=== PATIENT | female | born 1945 | race African-American/Black ===

== ENCOUNTER 2020-02-13 20:44 | Inpatient (IN) | payer OTHER ==
[2020-02-13] MEDS ORDERED: NA CHLORIDE 0.9% 1,000 ML ONE (22:23)
[2020-02-13] MEDS ORDERED: ONDANSETRON 4 MG/2 ML VIAL ONE (22:23)
[2020-02-13] MEDS ORDERED: MORPHINE 2 MG/ML SYR ONE (22:23)
[2020-02-13 22:36] LABS: Absolute Lymphocytes (CBC) 0.9 K/uL (0.7-4.9); Basophils % 0.5 % (0-1.3); Hematocrit 48.1 % (36.0-45.0); Lymphocytes % 5.5 % (15.3-44.8); RBC Red Blood Cell Count 4.92 M/uL (3.86-4.86)
[2020-02-13 22:52] LABS: Albumin 4.2 g/dL (3.4-5.0); Bilirubin Direct 0.1 mg/dL (0-0.2); Bilirubin Total 0.7 mg/dL (0.2-1.0); Potassium 3.6 mmol/L (3.5-5.1); Protein, Total 8.4 g/dL (6.4-8.2)
[2020-02-13 23:20] LABS: Blood Morphology Comment NOT SEEN (NOT SEEN); Platelet Estimate ADEQ
--- NOTE | 2020-02-14 00:13 | ER ---
Nurse's Notes [facility] Name: Moriah Fernández Age: 74 yrs Sex: Female : 1945 Arrival Date: 02/13/2020 Time: 20:47 Bed 7 Private MD: Deyvi Gamez Diagnosis: Small Bowel Obstruction Presentation: 02/12 21:11 Chief complaint: Patient states: I think I might have a bowel obstruction. I have been ca1 vomiting since Tuesday night and abdominal pain. I had a lot of gas Tuesday night. Denies diarrhea. Last good BM Tuesday. Had a small BM today. No HX of bowel obstruction. Every time I eat I throw it up. Denies fever. Coronavirus screen: nausea, vomiting. Client presents with at least one sign or symptom that may indicate coronavirus-19. Standard/surgical mask placed on the client. Provider contacted for isolation considerations. Ebola Screen: Patient negative for fever greater than or equal to 101.5 degrees Fahrenheit, and additional compatible Ebola Virus Disease symptoms Patient denies exposure to infectious person. Patient denies travel to an Ebola-affected area in the 21 days before illness onset. No symptoms or risks identified at this time. Initial Sepsis Screen: Does the patient meet any 2 criteria? No. Patient's initial sepsis screen is negative. Does the patient have a suspected source of infection? No. Patient's initial sepsis screen is negative. Risk Assessment: Do you want to hurt yourself or someone else? Patient reports no desire to harm self or others. Onset of symptoms was February 13, 2020. 21:11 Method Of Arrival: Ambulatory ca1 21:11 Acuity: KRISTINA 3 ca1 Triage Assessment: 22:35 General: Appears in no apparent distress. GI: Last BM was February 13, 2020. ll2 Historical: - Allergies: 21:59 Bactrim; ll2 21:59 Levaquin; ll2 - PMHx: 21:59 Hypertension; Hyperlipidemia; ll2 - PSHx: 21:59 Tubal ligation; Hysterectomy; Breast biopsy; Hernia repair; ll2 - Immunization history:: Adult Immunizations up to date, Pneumococcal vaccine is up to date, Flu vaccine is up to date. - Social history:: Smoking status: Patient denies any tobacco usage or history of. Screenin:58 Abuse screen: Denies threats or abuse. Nutritional screening: No deficits noted. ll2 Tuberculosis screening: No symptoms or risk factors identified. Fall Risk None identified. Assessment: 21:57 General: Appears in no apparent distress. Behavior is calm, cooperative, appropriate ll2 for age. Pain: Denies pain. Neuro: Level of Consciousness is awake, alert, obeys commands, Oriented to person, place, time, situation. Cardiovascular: Patient's skin is warm and dry. Respiratory: Airway is patent Respiratory effort is even, unlabored, Respiratory pattern is regular, symmetrical. : No signs and/or symptoms were reported regarding the genitourinary system. EENT: No signs and/or symptoms were reported regarding the EENT system. Derm: Skin is intact, is healthy with good turgor, Skin is dry, Skin is normal, Skin temperature is warm. Musculoskeletal: Circulation, motion, and sensation intact. Range of motion: intact in all extremities. 23:00 Reassessment: Patient and/or family updated on plan of care and expected duration. Pain ll2 level reassessed. Patient is alert, oriented x 3, equal unlabored respirations, skin warm/dry/pink. 02/13 00:15 Reassessment: Patient and/or family updated on plan of care and expected duration. Pain ll2 level reassessed. Patient is alert, oriented x 3, equal unlabored respirations, skin warm/dry/pink. 00:32 Reassessment: report given ALTAGRACIA Quinonez. ll2 Vital Signs: 02/12 21:11 BP 137 / 90; Pulse 93; Resp 18 S; Temp 97.5(TE); Pulse Ox 97% on R/A; Weight 69.4 kg ca1 (R); Height 5 ft. 2 in. (157.48 cm) (R); Pain /10; 21:59 BP 137 / 90; Pulse 93; Resp 18; Temp 97.5; Pulse Ox 97% on R/A; ll2 22:45 BP 130 / 75; Pulse 80; Resp 16; Pulse Ox 95% on R/A; rv 02/13 00:28 BP 105 / 60; Pulse 84; Resp 16; Pulse Ox 93% on R/A; ll2 02/12 21:11 Body Mass Index 27.98 (69.40 kg, 157.48 cm) ca1 ED Course: 12/02 20:47 Patient arrived in ED. bp1 20:50 Deyvi Gamez MD is Private Physician. am2 21:16 Triage completed. ca1 21:17 Arm band placed on right wrist. ca1 21:46 Rad[facility] Lake [facility]C [facility] kb 21:46 Dariel Barron MD is Attending Physician. kb 21:57 Dawna Ugalde, RN is Primary Nurse. ll2 21:59 Patient has correct armband on for positive identification. Pulse ox on. NIBP on. ll2 21:59 No provider procedures requiring assistance completed. ll2 22:29 Initial lab(s) drawn, sent to lab. Inserted saline lock: 20 gauge in right antecubital ll2 area, using aseptic technique. Blood collected. 23:26 Abdomen In Process Unspecified. EDMS 02/13 00:12 Ekta Jensen MD is Hospitalizing Provider. kb Administered Medications: 02/12 22:27 Drug: morphine 2 mg Route: IVP; Site: right antecubital; ll2 23:05 Follow up: Response: No adverse reaction; RASS: Alert and Calm (0) ll2 22:28 Drug: NS 0.9% 1000 ml Route: IV; Rate: 1000 ml; Site: right antecubital; ll2 23:30 Follow up: Response: No adverse reaction; IV Status: Completed infusion; IV Intake: ll2 1000ml 22:28 Drug: Zofran (Ondansetron) 4 mg Route: IVP; Site: right antecubital; ll2 23:05 Follow up: Response: No adverse reaction ll2 Intake: 23:30 IV: 1000ml; Total: 1000ml. ll2 Outcome: 02/13 00:12 Decision to Hospitalize by Provider. kb 01:13 Patient left the ED. ea Signatures: Dispatcher [employer] EDMI Radha Lake FNP-C [employer] HELPER-Ckb Haylie Ellis am2 Tabitha Ren RN Ashwin Hill ea RN ALTAGRACIA rv Sayda Gresham RN RN ca1 Dawna Ugalde, ALTAGRACIA FRIAS ll2 Brittanie Cantu Corrections: (The following items were deleted from the chart) 02/12 21:59 21:17 Allergies: Bactrim; ca1 ll2 21:59 21:17 Allergies: Levaquin; ca1 ll2 21:17 PMHx: Hypertension; ca1 ll2 21:17 PMHx: Hyperlipidemia; ca1 ll2 21:17 PSHx: Tubal ligation; ca1 ll2 21:17 PSHx: Hysterectomy; ca1 ll2 21:17 PSHx: Breast biopsy; ca1 ll2 21:17 PSHx: Hernia repair; ca1 ll2
--- NOTE | 2020-02-14 00:14 | EDPHYS ---
Physician Documentation [facility] Name: Moriah Fernández Age: 74 yrs Sex: Female : 1945 Arrival Date: 02/13/2020 Time: 20:47 Bed 7 Private MD: Deyvi Gamez ED Physician Dariel Barron HPI: 02/13 00:26 This 74 yrs old Black Female presents to ER via Ambulatory with complaints of Abdominal kb Pain. 00:26 The patient presents with abdominal pain that is diffuse. Onset: The symptoms/episode kb began/occurred this morning. The symptoms do not radiate. Associated signs and symptoms: Pertinent positives: nausea and vomiting, Pertinent negatives: diarrhea, fever. The symptoms are described as constant. Modifying factors: The symptoms are alleviated by nothing, the symptoms are aggravated by nothing. Severity of pain: At its worst the pain was moderate in the emergency department the pain is unchanged. The patient has not experienced similar symptoms in the past. The patient has not recently seen a physician. Historical: - Allergies: 02/12 21:59 Bactrim; ll2 21:59 Levaquin; ll2 - PMHx: 21:59 Hypertension; Hyperlipidemia; ll2 - PSHx: 21:59 Tubal ligation; Hysterectomy; Breast biopsy; Hernia repair; ll2 - Immunization history:: Adult Immunizations up to date, Pneumococcal vaccine is up to date, Flu vaccine is up to date. - Social history:: Smoking status: Patient denies any tobacco usage or history of. ROS: 02/13 00:26 Constitutional: Negative for fever, chills, and weight loss, Cardiovascular: Negative kb for chest pain, palpitations, and edema, Respiratory: Negative for shortness of breath, cough, wheezing, and pleuritic chest pain, Back: Negative for injury and pain, MS/Extremity: Negative for injury and deformity, Skin: Negative for injury, rash, and discoloration, Neuro: Negative for headache, weakness, numbness, tingling, and seizure. Abdomen/GI: Positive for abdominal pain, nausea and vomiting. Exam: 00:26 Constitutional: This is a well developed, well nourished patient who is awake, alert, kb and in no acute distress. Head/Face: Normocephalic, atraumatic. Chest/axilla: Normal chest wall appearance and motion. Nontender with no deformity. No lesions are appreciated. Cardiovascular: Regular rate and rhythm with a normal S1 and S2. No gallops, murmurs, or rubs. Normal PMI, no JVD. No pulse deficits. Respiratory: Lungs have equal breath sounds bilaterally, clear to auscultation and percussion. No rales, rhonchi or wheezes noted. No increased work of breathing, no retractions or nasal flaring. Skin: Warm, dry with normal turgor. Normal color with no rashes, no lesions, and no evidence of cellulitis. MS/ Extremity: Pulses equal, no cyanosis. Neurovascular intact. Full, normal range of motion. Neuro: Awake and alert, GCS 15, oriented to person, place, time, and situation. Cranial nerves II-XII grossly intact. Motor strength 5/5 in all extremities. Sensory grossly intact. Cerebellar exam normal. Normal gait. 00:26 Abdomen/GI: Inspection: distension, Bowel sounds: diminished, Palpation: soft, in all quadrants, mild abdominal tenderness, in all quadrants. Vital Signs: 02/12 21:11 BP 137 / 90; Pulse 93; Resp 18 S; Temp 97.5(TE); Pulse Ox 97% on R/A; Weight 69.4 kg ca1 (R); Height 5 ft. 2 in. (157.48 cm) (R); Pain 1/10; 21:59 BP 137 / 90; Pulse 93; Resp 18; Temp 97.5; Pulse Ox 97% on R/A; ll2 22:45 BP 130 / 75; Pulse 80; Resp 16; Pulse Ox 95% on R/A; rv 02/13 00:28 BP 105 / 60; Pulse 84; Resp 16; Pulse Ox 93% on R/A; ll2 02/12 21:11 Body Mass Index 27.98 (69.40 kg, 157.48 cm) ca1 MDM: 02/12 21:46 Patient medically screened. kb 02/13 00:11 Data reviewed: vital signs, nurses notes. Data interpreted: Pulse oximetry: on room air kb is 95 %. Interpretation: normal. Counseling: I had a detailed discussion with the patient and/or guardian regarding: the historical points, exam findings, and any diagnostic results supporting the discharge/admit diagnosis, lab results, radiology results, the need for further work-up and treatment in the hospital. Physician consultation: Chun SCHULTE was contacted at 00:11, regarding admission, patient's condition, and will see patient in ED, shortly. 00:25 Physician consultation: Bayron Blank MD was contacted at 00:25, regarding consult, kb patient's condition, and will see patient in inpatient room, tomorrow. 02/12 22:01 Order name: Basic Metabolic Panel; Complete Time: 22:59 kb 02/12 22:01 Order name: CBC with Diff; Complete Time: 23:30 kb 02/12 22:01 Order name: Hepatic Function; Complete Time: 22:59 kb 02/12 22:01 Order name: Lipase; Complete Time: 22:59 kb 02/12 22:41 Order name: Manual Differential; Complete Time: 23:30 EDMS 02/12 22:01 Order name: IV Saline Lock; Complete Time: 22:29 kb 02/12 22:01 Order name: Labs collected and sent; Complete Time: 22:29 kb 02/12 23:01 Order name: Abdomen EDMS 02/13 01:08 Order name: CONS Physician Consult EDMS Administered Medications: 02/12 22:27 Drug: morphine 2 mg Route: IVP; Site: right antecubital; ll2 23:05 Follow up: Response: No adverse reaction; RASS: Alert and Calm (0) ll2 22:28 Drug: NS 0.9% 1000 ml Route: IV; Rate: 1000 ml; Site: right antecubital; ll2 23:30 Follow up: Response: No adverse reaction; IV Status: Completed infusion; IV Intake: ll2 1000ml 22:28 Drug: Zofran (Ondansetron) 4 mg Route: IVP; Site: right antecubital; ll2 23:05 Follow up: Response: No adverse reaction ll2 Disposition: 02/13 03:31 Co-signature as Attending Physician, Dariel Barron MD. [email or web address] Disposition: 02/14/20 00:12 Hospitalization ordered by Ekta Jensen for Inpatient Admission. Preliminary diagnosis is Small Bowel Obstruction. - Bed requested for Telemetry/MedSurg (Inpatient). - Status is Inpatient Admission. ea - Condition is Stable. - Problem is new. - Symptoms are unchanged. Signatures: Dispatcher [employer] EDMS Radha Lake FNP-C FNP-Ckb Sondra Oconnor, RN RN mw Tabitha Ren, RN RN ea Sayda Gresham, RN RN ca1 Dawna Ugalde, RN RN ll2 Dariel Barron MD MD [email or web address] Corrections: (The following items were deleted from the chart) 02/12 21:59 21:17 Allergies: Bactrim; ca1 ll2 21:59 21:17 Allergies: Levaquin; ca1 ll2 21:59 21:17 PMHx: Hypertension; ca1 ll2 21:59 21:17 PMHx: Hyperlipidemia; ca1 ll2 21:59 21:17 PSHx: Tubal ligation; ca1 ll2 21:59 21:17 PSHx: Hysterectomy; ca1 ll2 21:59 21:17 PSHx: Breast biopsy; ca1 ll2 21:59 21:17 PSHx: Hernia repair; ca1 ll2 23:01 22:02 Abdomen Pelvis W Con+CT.RAD.BRZ ordered. EDMS EDMS 02/13 00:15 00:12 Hospitalization Ordered by Ekta Jensen MD for Inpatient Admission. Preliminary mw diagnosis is Small Bowel Obstruction. Bed requested for Telemetry/MedSurg (Inpatient). Status is Inpatient Admission. Condition is Stable. Problem is new. Symptoms are unchanged. kb 01:13 00:15 02/14/2020 00:12 Hospitalization Ordered by Ekta Jensen MD for Inpatient ea Admission. Preliminary diagnosis is Small Bowel Obstruction. Bed requested for Telemetry/MedSurg (Inpatient). Status is Inpatient Admission. Condition is Stable. Problem is new. Symptoms are unchanged. mw
[2020-02-14] MEDS ORDERED: MORPHINE 4 MG/ML SYR IV PRN (01:11)
[2020-02-14] MEDS ORDERED: ACETAMINOPHEN 500 MG TAB PO PRN (01:11)
[2020-02-14] MEDS ORDERED: HYDRALAZINE HCL 20 MG/ML VIAL IV PRN (01:29)
[2020-02-14 02:09] VITALS: BMI 29.2
[2020-02-14] MEDS: D5 0.45 NS 1,000 ML IV SCH ×2 (02:21→12:12)
--- NOTE | 2020-02-14 04:17 | P.HP ---
Certification for Inpatient Patient admitted to: Inpatient With expected LOS: >2 Midnights Patient will require the following post-hospital care: None Practitioner: I am a practitioner with admitting privileges, knowledge of patient current condition, hospital course, and medical plan of care. Services: Services provided to patient in accordance with Admission requirements found in Title 42 Section 412.3 of the Code of Federal Regulations <[address] - Last Filed: 02/14/20 04:12> Patient History Date of Service: 02/14/20 Primary Care Provider: Dr. Gamez Reason for admission: Small Bowel Obstruction History of Present Illness: This is a 74-year-old female with a history of hypertension, hyperlipidemia, glaucoma with previous history of tubal ligation, hysterectomy, hernia repair that came to the emergency room today for increased abdominal pain and nausea. Patient stated that her pain started on Tuesday followed by nausea and vomiting. Since then she has had persistent pain with nausea and occasional vomiting. Patient denies having abdominal complaints in the past. Patient was worked up in the emergency room and was found to have a 15.6 WBC, 138 sodium, 3.6 potassium, 100 chloride, 32 bicarb, 32 BUN, 1.63 creatinine, glucose 137, and a CT abdomen pelvis with IV contrast that revealed a small bowel obstruction. Remainder of exam and and labs were unremarkable. ER call general surgery for consult which Dr. Chiang accepted. Patient at this time without nausea and no vomiting. Will hold nasogastric tube per general surgery. Hospital medicine was consulted at that time for admission. Home medications list reviewed: Yes - Past Medical/Surgical History Has patient received pneumonia vaccine in the past: Yes Diabetic: No -: HTN -: Hyperlipidemia - Social History Smoking Status: Never smoker Smoking therapy provided: No Alcohol use: No CD- Drugs: No Caffeine use: No Place of Residence: Home <[address] - Last Filed: 02/14/20 04:12> Date of Service: 02/14/20 <Ekta Jensen - Last Filed: 02/15/20 09:53> Allergies levofloxacin [From Levaquin] Allergy (Verified 02/14/20 01:52) Rash sulfamethoxazole [From Bactrim] Allergy (Verified 02/14/20 01:52) Rash trimethoprim [From Bactrim] Allergy (Verified 02/14/20 01:52) Rash Home Medications: Cetirizine HCl [Zyrtec] 10 mg PO DAILY 04/21/15 Cholecalciferol (Vitamin D3) [Vitamin D 5,000 Iu Cap] 5,000 unit PO EVERY 3RD DAY 04/21/15 Latanoprost Ophth [Xalatan 0.005% Ophth Michelle] 2.5 ml EACH EYE DAILY 04/21/15 Multivitamin [Multivitamins] 1 each PO DAILY 04/21/15 Amlodipine [Norvasc*] 1 tab PO DAILY 02/14/20 Aspirin 1 tab PO DAILY 02/14/20 Atorvastatin Calcium 1 tab PO DAILY 02/14/20 lisinopriL [Lisinopril] 1 tab PO DAILY 02/14/20 Review of Systems General: Unremarkable Eyes: Unremarkable ENT: Unremarkable Respiratory: Unremarkable Cardiovascular: Unremarkable Gastrointestinal: Nausea, Vomiting, Abdominal Pain Musculoskeletal: Unremarkable Integumentary: Unremarkable Neurological: Unremarkable Lymphatics: Unremarkable <Gray Lane - Last Filed: 02/14/20 04:12> Physical Examination - Vital Signs Temperature: 98.1 F Blood Pressure: 133/62 Pulse: 82 Respirations: 16 Pulse Ox (%): 96 - Physical Exam General: Alert, In no apparent distress, Oriented x3, Cooperative HEENT: PERRLA, Mucous membr. moist/pink, EOMI Neck: Supple, 2+ carotid pulse no bruit, JVD not distended, No Thyromegaly, No LAD Respiratory: Clear to auscultation bilaterally, Normal air movement Cardiovascular: No edema, Normal pulses, Regular rate/rhythm, Normal S1 S2, No gallops, No rubs, No murmurs Capillary refill: <2 Seconds Gastrointestinal: Normal bowel sounds, Soft and benign, Non-distended, No masses, No rebound, No guarding, Tenderness (Mild midabdominal tenderness noted upon palpation) Musculoskeletal: No clubbing, No swelling, No contractures, No erythema, No tenderness, No warmth Integumentary: No rashes, No breakdown, No significant lesion, No tenderness/swelling, No erythema, No warmth, No cyanosis Neurological: Normal speech, Normal strength at 5/5 x4 extr, Normal tone, Sensation intact, Normal affect Lymphatics: No axilla or inguinal lymphadenopathy - Studies Laboratory Data (last 24 hrs) 02/13/20 22:17: WBC 15.6 H, Hgb 16.1 H, Hct 48.1 H, Plt Count 175 02/13/20 22:17: Sodium 138, Potassium 3.6, BUN 32 H, Creatinine 1.63 H, Glucose 137 H, Total Bilirubin 0.7, AST 22, ALT 32, Alkaline Phosphatase 82, Lipase [address] <[address] - Last Filed: 02/14/20 04:12> Assessment and Plan - Problems (Diagnosis) (1) Hypertension Current Visit: Yes Status: Chronic Qualifiers: Hypertension type: essential hypertension Qualified Code(s): I10 - Essential (primary) hypertension (2) Hyperlipidemia Current Visit: Yes Status: Chronic Qualifiers: Hyperlipidemia type: unspecified Qualified Code(s): E78.5 - Hyperlipidemia, unspecified (3) Small bowel obstruction Current Visit: Yes Status: Acute - Plan 1. Patient's blood pressure will be controlled with IV medications since she is on in PE no diet secondary to small bowel obstruction. Will control blood pressure for anything greater than 160 systolic over 110 diastolic. 2. Patient will be be hydrated via IV 3. Will repeat abdominal plain films in the morning for reassessment of small- bowel obstruction. 4. Will wait for Dr. Fuller consult for further treatment plan 5. Patient will remain on restrictive food and fluid diet along with bowel rest. Will continue pain meds and nausea medications as needed. If patient begins to vomit nasogastric tube will be placed. 6. Patient did have elevated white cell count and therefore will be put on antibiotics 7. Will continue to monitor patient's labs and renal function for stability Discharge Plan: Home Plan to discharge in: Greater than 2 days - Advance Directives Does patient have a Living Will: No Does patient have a Durable POA for Healthcare: No - Code Status/Comfort Care Code Status Assessed: No Critical Care: No Time Spent Managing Pts Care (In Minutes): [address] <[address] - Last Filed: 02/14/20 04:12> Date of Service: 02/14/20 Agree with plan of care as mentioned above. Patient is clinically doing much better. However, she is not had flatus and she has not had a bowel movement. She denies any nausea. Have started her on a clear liquid diet and she was given mineral oil. The patient has a bowel movement then anticipate discharge home over the next 48 hr. <Ekta Jensen - Last Filed: 02/15/20 09:53>
[2020-02-14] MEDS: ONDANSETRON 4 MG/2 ML VIAL IV PRN ×2 (04:56→18:52)
[2020-02-14] MEDS ORDERED: CEFOXITIN/SWI 1gm 1 GM/10 ML SYR ONE (05:43)
[2020-02-14] MEDS ORDERED: CEFOXITIN SODIUM 1 GM/VIAL IVPB SCH (06:00)
[2020-02-14] MEDS ORDERED: CEFOXITIN IV SCH (06:00)
[2020-02-14] MEDS ORDERED: WATER FOR INJ STERILE IV SCH (06:00)
[2020-02-14 06:20] LABS: Urine Appearance CLEAR; Urine Color YELLOW; Urine Glucose NEGATIVE (NEG); Urine Specific Gravity 1.025 (1.005-1.030)
[2020-02-14 06:21] LABS: Urine Bilirubin NEGATIVE (NEG); Urine Blood NEGATIVE (NEG); Urine Microscopic Reflex ORDER UMIC; Urine Protein NEGATIVE (NEG); Urine Urobilinogen 0.2 mg/dL (0.2-1.0); Urine pH 5.5 (5.0-7.0)
[2020-02-14 06:33] LABS: Urine Bacteria <20 /HPF (<20); Urine RBC <5 /HPF (NONE SEEN); Urine Urothelial Cells <5 /HPF (NONE SEEN)
--- NOTE | 2020-02-14 07:14 | RAD REPORT ---
EXAM DESCRIPTION: RAD - Abdomen 1 View (KUB) - 02/14/2020 6:06 am CLINICAL HISTORY: SBO COMPARISON: Abdomen Pelvis Wo Contrast dated 02/13/2020 FINDINGS: Multiple dilated small bowel loops remain in the mid and upper abdomen. Pattern has not ch ministerio from the prior night CT study. No free air or pneumatosis have developed. Delete select multiple phleboliths are seen in the lower pelvis. Prominent lower lumbar degenerative change present. IMPRESSION: Small bowel obstruction pattern unchanged from the prior day CT imaging. No free air or pneumatosis seen.
--- NOTE | 2020-02-14 10:15 | RAD REPORT ---
EXAM DESCRIPTION: CT - Abdomen Pelvis Wo Contrast - 02/14/2020 6:42 am CLINICAL HISTORY: Abdominal pain, vomiting TECHNIQUE: Contiguous axial images obtained through the abdomen and pelvis without IV contrast. Pretty nal and sagittal reformatted images were provided. This exam was performed according to our departmental dose-optimization program, which includes autom ated exposure control, adjustment of the mA and/or kV according to patient size and/or use of iterati ve reconstruction technique. COMPARISON: 05/19/2015 FINDINGS: Lung bases: Bibasilar pleural parenchymal scar. Small hiatal hernia. Liver: The liver is enlarged. Gallbladder and biliary system: Unremarkable Pancreas: Grossly unremarkable Spleen: Grossly unremarkable Adrenals: Stable bilateral adrenal thickening. Kidneys: Interval development of severe right hydronephrosis and moderate hydroureter with diffuse ri ght renal cortical thinning. Caliber change at the distal ureteral level. No calculi. Bowel: Multiple dilated small bowel loops with air-fluid levels. Stasis within the pelvis. Transition in the right lower quadrant. The terminal ileum is decompressed. Colonic diverticula without adjacen t inflammatory change. Appendix: The appendix is not definitively visualized. No findings to suggest acute appendicitis. Urinary bladder: The urinary bladder is decompressed. Reproductive: There has been a hysterectomy. No adnexal cysts or masses are identified. Lymph nodes: No pathologically enlarged lymph nodes. Peritoneum: Small amount of free fluid within the abdomen and pelvis. No free air. Vessels: Mild to moderate atherosclerotic disease. No abdominal aortic aneurysm. Abdominal wall: Prior right inguinal hernia repair. Bones: Multilevel spondylosis. No acute fracture. IMPRESSION: 1. Small bowel obstruction. 2. Interval development of severe right hydronephrosis and moderate hydroureter with diffuse cortic al thinning most compatible with a chronic obstructive process. Caliber change at the distal ureteral level, possibly secondary to underlying stricture. 3. Other findings as above. Electronically signed by: Antonio Soto MD 02/14/2020 12:01 AM COMMUNICATIONS OPERATOR Due to temporary technical issues with the PACS/Fluency reporting system, reports are being signed by the in house radiologist without review as a courtesy to ensure prompt reporting. The interpreting r adiologist is fully responsible for the content of the report.
--- NOTE | 2020-02-14 13:32 | P.CNS ---
Date of Consult: 02/14/20 PC: I was asked to see this 74-year-old female in regards to a possible bowel obstruction. HPC: Patient states she has been feeling well until just the other day. Thinks it was because she ate some sweet potatoes. Shortly thereafter she began experience some a lot a gas type pressure. Then abdominal pain, located in the right lower portion of her abdomen. Pain would come and go. Has not had any bowel movements. Has been having some nausea and vomiting. PMH: Hypertension, PSHx: Previous hysterectomy, colonoscopy 2010 SOC: Allergic to Levaquin, sulfa and trimethoprim SYS REVIEW: States she has otherwise healthy lady. No cough, wheeze, shortness of breath. Denies any urinary complaints. Has not had any severe backache. She is followed by her regular doctor, and has yearly 0 call stool blood checks done. O/E awake alert vital signs stable. Does not appear to be any acute distress HEENT: Not jaundiced Chest: Chest movement equal bilaterally ABD: Soft nontender no masses are palpable LOCO: Intact DATA: CT scan suggests partial small-bowel obstruction IMPRESSION: Nonsurgical abdomen in a patient with a partial small-bowel obstruction. Most likely secondary to adhesions. PLAN: I will give the patient mineral oil today. She will get up and ambulate. Anticipate that this problem should resolve by itself in the next 24 hr or so. She is not requiring surgical intervention. She may be able to have clear liquids this evening if her nausea is gone.
[2020-02-14] MEDS ORDERED: MINERAL OIL 30 ML UCUP PO ONE (14:00)
[2020-02-14] MEDS: ENOXAPARIN 30 MG/0.3 ML SQ SCH (18:52)
[2020-02-14] MEDS: CEFOXITIN/SWI 1gm 1 GM/10 ML SYR IV SCH (20:51)
--- NOTE | 2020-02-14 21:40 | P.CNS ---
Date of Consult: 02/14/20 Reason for Consult: TERESA Requesting Physician: Ekta Jensen Primary Care Provider: Dr. Gamez Chief Complaint: Small Bowel Obstruction History of Present Illness: This is a 74-year-old female with a history of hypertension, hyperlipidemia, glaucoma with previous history of tubal ligation, hysterectomy, hernia repair that came to the emergency room today for increased abdominal pain and nausea. Patient stated that her pain started on Tuesday followed by nausea and vomiting. Since then she has had persistent pain with nausea and occasional vomiting. Patient denies having abdominal complaints in the past. Patient was worked up in the emergency room and was found to have a 15.6 WBC, 138 sodium, 3.6 potassium, 100 chloride, 32 bicarb, 32 BUN, 1.63 creatinine, glucose 137, and a CT abdomen pelvis with IV contrast that revealed a small bowel obstruction. Remainder of exam and and labs were unremarkable. ER call general surgery for consult which Dr. Chiang accepted. Patient at this time without nausea and no vomiting. Will hold nasogastric tube per general surgery. Hospital medicine was consulted at that time for admission. 00:26 This 74 yrs old Black Female presents to ER via Ambulatory with complaints of Abdominal kb Pain. 00:26 The patient presents with abdominal pain that is diffuse. Onset: The symptoms/episode kb began/occurred this morning. The symptoms do not radiate. Associated signs and symptoms: Pertinent positives: nausea and vomiting, Pertinent negatives: diarrhea, fever. The symptoms are described as constant. Modifying factors: The symptoms are alleviated by nothing, the symptoms are aggravated by nothing. Severity of pain: At its worst the pain was moderate in the emergency department the pain is unchanged. The patient has not experienced similar symptoms in the past. The patient has not recently seen a physician. Allergies levofloxacin [From Levaquin] Allergy (Verified 02/14/20 01:52) Rash sulfamethoxazole [From Bactrim] Allergy (Verified 02/14/20 01:52) Rash trimethoprim [From Bactrim] Allergy (Verified 02/14/20 01:52) Rash Home medications list reviewed: Yes Home Medications: Cetirizine HCl [Zyrtec] 10 mg PO DAILY 04/21/15 Cholecalciferol (Vitamin D3) [Vitamin D 5,000 Iu Cap] 5,000 unit PO EVERY 3RD DAY 04/21/15 Latanoprost Ophth [Xalatan 0.005% Ophth Michelle] 2.5 ml EACH EYE DAILY 04/21/15 Multivitamin [Multivitamins] 1 each PO DAILY 04/21/15 Amlodipine [Norvasc*] 1 tab PO DAILY 02/14/20 Aspirin 1 tab PO DAILY 02/14/20 Atorvastatin Calcium 1 tab PO DAILY 02/14/20 lisinopriL [Lisinopril] 1 tab PO DAILY 02/14/20 - Past Medical/Surgical History Diabetic: No -: HTN -: Hyperlipidemia - Social History Alcohol use: No CD- Drugs: No Caffeine use: No Place of Residence: Home Review of Systems 10-point ROS is otherwise unremarkable General: Weakness, Malaise Gastrointestinal: Abdominal Pain Physical Examination Temp Pulse Resp BP Pulse Ox 97.8 F 68 18 118/57 L 94 02/14/20 16:00 02/14/20 16:00 02/14/20 16:00 02/14/20 16:00 02/14/20 16:00 General: Oriented x3, Cooperative HEENT: Atraumatic Neck: Supple Respiratory: Clear to auscultation bilaterally Cardiovascular: Regular rate/rhythm Gastrointestinal: Non-distended, No guarding, Tenderness Musculoskeletal: No clubbing, No contractures Integumentary: No rashes, No cyanosis Neurological: Normal speech Laboratory Data (last 24 hrs) 02/13/20 22:17: WBC 15.6 H, Hgb 16.1 H, Hct 48.1 H, Plt Count 175 02/13/20 22:17: Sodium 138, Potassium 3.6, BUN 32 H, Creatinine 1.63 H, Glucose 137 H, Total Bilirubin 0.7, AST 22, ALT 32, Alkaline Phosphatase 82, Lipase 85 Imagings Data: EXAM DESCRIPTION: CT - Abdomen Pelvis Wo Contrast - 02/14/2020 6:42 am CLINICAL HISTORY: Abdominal pain, vomiting TECHNIQUE: Contiguous axial images obtained through the abdomen and pelvis without IV contrast. Coronal and sagittal reformatted images were provided. This exam was performed according to our departmental dose-optimization program, which includes automated exposure control, adjustment of the mA and/or kV according to patient size and/or use of iterative reconstruction technique. COMPARISON: 05/19/2015 FINDINGS: Lung bases: Bibasilar pleural parenchymal scar. Small hiatal hernia. Liver: The liver is enlarged. Gallbladder and biliary system: Unremarkable Pancreas: Grossly unremarkable Spleen: Grossly unremarkable Adrenals: Stable bilateral adrenal thickening. Kidneys: Interval development of severe right hydronephrosis and moderate hydroureter with diffuse right renal cortical thinning. Caliber change at the distal ureteral level. No calculi. Bowel: Multiple dilated small bowel loops with air-fluid levels. Stasis within the pelvis. Transition in the right lower quadrant. The terminal ileum is decompressed. Colonic diverticula without adjacent inflammatory change. Appendix: The appendix is not definitively visualized. No findings to suggest acute appendicitis. Urinary bladder: The urinary bladder is decompressed. Reproductive: There has been a hysterectomy. No adnexal cysts or masses are identified. Lymph nodes: No pathologically enlarged lymph nodes. Peritoneum: Small amount of free fluid within the abdomen and pelvis. No free air. Vessels: Mild to moderate atherosclerotic disease. No abdominal aortic aneurysm. Abdominal wall: Prior right inguinal hernia repair. Bones: Multilevel spondylosis. No acute fracture. IMPRESSION: 1. Small bowel obstruction. 2. Interval development of severe right hydronephrosis and moderate hydroureter with diffuse cortical thinning most compatible with a chronic obstructive process. Caliber change at the distal ureteral level, possibly secondary to underlying stricture. 3. Other findings as above. EXAM DESCRIPTION: RAD - Abdomen 1 View (KUB) - 02/14/2020 6:06 am CLINICAL HISTORY: SBO COMPARISON: Abdomen Pelvis Wo Contrast dated 02/13/2020 FINDINGS: Multiple dilated small bowel loops remain in the mid and upper abdomen. Pattern has not change from the prior night CT study. No free air or pneumatosis have developed. Delete select multiple phleboliths are seen in the lower pelvis. Prominent lower lumbar degenerative change present. IMPRESSION: Small bowel obstruction pattern unchanged from the prior day CT imaging. No free air or pneumatosis seen. Conclusions/Impression: A/ TERESA likely due to hypovolemia complicated by obstruction Right hydronephrosis & hydroureter Hypercalcemia HTN Hyperglycemia SBO P/ Continue current POC and Medications. Continue IVF. Hold antihypertensives. Recommend a urology evalation for the right hydronephrosis. Surgery following SBO. Continue abx and laxative therapy. No NSAIDs. AM labs. Daily weight. Thank you kindly for the consultation.
[2020-02-15] MEDS: D5 0.45 NS 1,000 ML IV SCH ×3 (00:03→19:39)
[2020-02-15 06:50] LABS: Basophils % 0.5 % (0-1.3); Hematocrit 41.7 % (36.0-45.0); Lymphocytes % 10.2 % (15.3-44.8); MPV 9.4 fL (7.6-11.3); Potassium 3.7 mmol/L (3.5-5.1); RBC Red Blood Cell Count 4.25 M/uL (3.86-4.86)
[2020-02-15] MEDS: CEFOXITIN/SWI 1gm 1 GM/10 ML SYR IV SCH ×2 (09:48→21:18)
--- NOTE | 2020-02-15 09:54 | P.PN ---
Subjective Date of Service: 02/15/20 Patient is clinically doing well with no new complaints. Pt is still having some nausea and vomiting. Review of Systems 10-point ROS is otherwise unremarkable Physical Examination - Vital Signs Temperature: 97.4 F Blood Pressure: 131/59 Pulse: 77 Respirations: 18 Pulse Ox (%): 95 - Physical Exam General: Alert, In no apparent distress, Oriented x3 Respiratory: Clear to auscultation bilaterally, Normal air movement Cardiovascular: Regular rate/rhythm, Normal S1 S2 Gastrointestinal: Normal bowel sounds, Soft and benign, No tenderness, Distended Musculoskeletal: No clubbing, No swelling, No contractures Neurological: Normal gait, Normal strength at 5/5 x4 extr, Sensation intact, Cranial nerves 3-12 intact Assessment & Plan - Problems (Diagnosis) (1) Small bowel obstruction, partial Status: Acute (2) Ileus Status: Acute (3) Intractable nausea and vomiting Status: Acute (4) Hyperlipidemia Status: Chronic Qualifiers: Hyperlipidemia type: unspecified Qualified Code(s): E78.5 - Hyperlipidemia, unspecified (5) Hypertension Status: Chronic Qualifiers: Hypertension type: essential hypertension Qualified Code(s): I10 - Essential (primary) hypertension - Plan Plan: 1. Continue with IV fluids 2. Continue with antiemetics 3. Repeat abdominal films 4. appreciate general surgery consultation 5. Strict blood pressure and cholesterol control 6. GI and DVT prophylaxis Discharge Plan: Home Plan to discharge in: 48 Hours - Advance Directives Does patient have a Living Will: No Does patient have a Durable POA for Healthcare: No - Code Status/Comfort Care Code Status Assessed: Yes Code Status: Full Code Critical Care: No Time Spent Managing PTS Care (In Minutes): 35
--- NOTE | 2020-02-15 13:50 | P.PN ---
Date of Service: 02/15/20 S: Patient feels somewhat better today, up ambulating in the hallway with his sister. No acute distress at the moment. Has not had any bowel movements. O: Abdomen is soft, nontender. White cell count is down to normal. A: Partial small-bowel obstruction appears to be resolving P: Will repeat mineral oil today, anticipate patient being able to tolerate diet soon.
[2020-02-15] MEDS ORDERED: MINERAL OIL 30 ML UCUP PO PRN (15:46)
[2020-02-15] MEDS: ONDANSETRON 4 MG/2 ML VIAL IV PRN (16:08)
[2020-02-15] MEDS: ENOXAPARIN 30 MG/0.3 ML SQ SCH (19:39)
--- NOTE | 2020-02-15 21:38 | P.PN ---
Date of Service: 02/15/20 Vital Signs Temp Pulse Resp BP Pulse Ox 97.6 F 70 18 146/70 H 96 02/15/20 16:00 02/15/20 16:00 02/15/20 16:00 02/15/20 16:00 02/15/20 16:00 Medications Acetaminophen (Tylenol -Extra Strength) 500 mg PO Q6H PRN PRN Reason: TEMP > 100' F Stop: 03/15/20 01:12 Enoxaparin Sodium (Lovenox 30 Mg Inj) 30 mg SQ DAILY 5 PM [facility] Stop: 03/15/20 17:01 Last Admin: 02/15/20 19:39 Dose: 30 mg Documented by: Hydralazine HCl (Apresoline) 10 mg IV Q6HP PRN PRN Reason: Titrate to SBP (MUST DEFINE) Stop: 03/15/20 01:30 Dextrose/Sodium Chloride (Dextrose 5% O.45% Saline) 1,000 mls @ 100 mls/hr IV .Q10H [facility] Stop: 03/15/20 02:01 Last Admin: 02/15/20 19:39 Dose: 1,000 mls Documented by: Cefoxitin Sodium (Mefoxin 1 Gm/10 Ml Swi Ivp) 1 gm in 10 mls @ 200 mls/hr IV Q12HR [facility] Stop: 03/15/20 21:01 Last Admin: 02/15/20 21:18 Dose: 10 mls Documented by: Mineral Oil (Mineral Oil) 60 ml PO DAILY PRN PRN Reason: CONSTIPATION Stop: 03/16/20 15:47 Last Admin: 02/15/20 16:09 Dose: 60 ml Documented by: Morphine Sulfate (Morphine Sulfate) 4 mg IV Q4H PRN PRN Reason: Pain scale 8-10 (Severe) Stop: 03/15/20 01:12 Last Admin: 02/14/20 04:57 Dose: 4 mg Documented by: Ondansetron HCl (Zofran) 4 mg IV Q4H PRN PRN Reason: NAUSEA / VOMITING Last Admin: 02/15/20 16:08 Dose: 4 mg Documented by: Assessment/ Plan: Nephrology CPS stable without CP or SOB. Abd pain is improving. No BM. No acute events overnight. Vitals, medications, blood work and imaging reviewed in the chart. General: Oriented x3, Cooperative HEENT: Atraumatic Neck: Supple Respiratory: Clear to auscultation bilaterally Cardiovascular: Regular rate/rhythm Gastrointestinal: Non-distended, No guarding, Tenderness Musculoskeletal: No clubbing, No contractures Integumentary: No rashes, No cyanosis Neurological: Normal speech Laboratory Data (last 24 hrs) 02/13/20 22:17: WBC 15.6 H, Hgb 16.1 H, Hct 48.1 H, Plt Count 175 02/13/20 22:17: Sodium 138, Potassium 3.6, BUN 32 H, Creatinine 1.63 H, Glucose 137 H, Total Bilirubin 0.7, AST 22, ALT 32, Alkaline Phosphatase 82, Lipase 85 Imagings Data: EXAM DESCRIPTION: CT - Abdomen Pelvis Wo Contrast - 02/14/2020 6:42 am CLINICAL HISTORY: Abdominal pain, vomiting TECHNIQUE: Contiguous axial images obtained through the abdomen and pelvis without IV contrast. Coronal and sagittal reformatted images were provided. This exam was performed according to our departmental dose-optimization program, which includes automated exposure control, adjustment of the mA and/or kV according to patient size and/or use of iterative reconstruction technique. COMPARISON: 05/19/2015 FINDINGS: Lung bases: Bibasilar pleural parenchymal scar. Small hiatal hernia. Liver: The liver is enlarged. Gallbladder and biliary system: Unremarkable Pancreas: Grossly unremarkable Spleen: Grossly unremarkable Adrenals: Stable bilateral adrenal thickening. Kidneys: Interval development of severe right hydronephrosis and moderate hydroureter with diffuse right renal cortical thinning. Caliber change at the distal ureteral level. No calculi. Bowel: Multiple dilated small bowel loops with air-fluid levels. Stasis within the pelvis. Transition in the right lower quadrant. The terminal ileum is decompressed. Colonic diverticula without adjacent inflammatory change. Appendix: The appendix is not definitively visualized. No findings to suggest acute appendicitis. Urinary bladder: The urinary bladder is decompressed. Reproductive: There has been a hysterectomy. No adnexal cysts or masses are identified. Lymph nodes: No pathologically enlarged lymph nodes. Peritoneum: Small amount of free fluid within the abdomen and pelvis. No free air. Vessels: Mild to moderate atherosclerotic disease. No abdominal aortic aneurysm. Abdominal wall: Prior right inguinal hernia repair. Bones: Multilevel spondylosis. No acute fracture. IMPRESSION: 1. Small bowel obstruction. 2. Interval development of severe right hydronephrosis and moderate hydroureter with diffuse cortical thinning most compatible with a chronic obstructive process. Caliber change at the distal ureteral level, possibly secondary to underlying stricture. 3. Other findings as above. EXAM DESCRIPTION: RAD - Abdomen 1 View (KUB) - 02/14/2020 6:06 am CLINICAL HISTORY: SBO COMPARISON: Abdomen Pelvis Wo Contrast dated 02/13/2020 FINDINGS: Multiple dilated small bowel loops remain in the mid and upper abdomen. Pattern has not change from the prior night CT study. No free air or pneumatosis have developed. Delete select multiple phleboliths are seen in the lower pelvis. Prominent lower lumbar degenerative change present. IMPRESSION: Small bowel obstruction pattern unchanged from the prior day CT imaging. No free air or pneumatosis seen. Conclusions/Impression: A/ TERESA likely due to hypovolemia complicated by chronic right ureter obstruction Right hydronephrosis & hydroureter Hypercalcemia HTN Hyperglycemia SBO P/ Continue current POC and Medications. Continue IVF. Restart antihypertensives as indicated. Recommend a urology evalation for the right hydronephrosis. Surgery following SBO. Continue abx and laxative therapy. No NSAIDs. AM labs. Daily weight.
[2020-02-16] MEDS: D5 0.45 NS 1,000 ML IV SCH ×2 (04:24→13:26)
[2020-02-16] MEDS: CEFOXITIN/SWI 1gm 1 GM/10 ML SYR IV SCH (08:04)
[2020-02-16 09:18] VITALS: O2SAT 98
--- NOTE | 2020-02-16 11:35 | RAD REPORT ---
EXAM DESCRIPTION: RAD - Abdomen W Erect - 02/16/2020 10:46 am CLINICAL HISTORY: Abdominal pain FINDINGS: Mildly dilated small bowel is present within organized fashion. Air within the colon is di minished. This likely represents a small bowel obstruction and is without significant change from Dec ember 3rd. Free air is not seen beneath the diaphragm
--- NOTE | 2020-02-16 14:14 | P.PN ---
Date of Service: 02/16/20 S: Patient is well today, has been having bowel movements. Has been tolerating clear liquids as well. Has no specific abdominal complaints. O: Negative A: Partial small-bowel obstruction appears to have resolved. P: Discharge home when hospitalist agrees. Does not require surgical intervention during this hospitalization. I did recommend to or at some point she does get a colonoscopy. She says she will discuss it with her primary care physician.
--- NOTE | 2020-02-16 18:53 | PN ---
Date of Progress Note: 02/16/2020 Subjective: The patient was seen and examined at bedside. She denies any complaints. She is doing much better and she is being discharged home. Objective: Vital Signs: Reviewed and stable. General: She appears in no acute distress. Lungs: Clear to auscultation. Abdomen: Soft, nontender. Extremities: No evidence of edema. Laboratory Data: No new labs from today reported. Current Medications: Reviewed in detail. Impression: 1.Acute on chronic renal failure secondary to acute tubular necrosis, currently improving. 2.Partial small bowel obstruction, improving with conservative treatment. 3.Possible chronic ureteropelvic junction obstruction. No acute intervention needed for right now f or the right hydronephrosis. 4.Hypertension, currently stable. 5.Hypercalcemia and hyperglycemia, improving. Plan: The patient is overall doing okay at this time. Continue all medications and plan of care. S he is okay to be discharged from Nephrology standpoint. ROSE/NARDA Voice ID: [id number] Report ID: [id number]
[2020-02-21 14:20] VITALS: BP 131/59; TEMP 97.4
--- NOTE | 2020-02-21 14:23 | P.DS ---
Discharge Date: 02/16/20 Primary Care Provider: Dr. Gamez Disposition: ROUTINE DISCHARGE Discharge Condition: GOOD Reason for Admission: Small Bowel Obstruction Consultations: General surgeon - Problems (1) Small bowel obstruction, partial Status: Acute (2) Ileus Status: Acute (3) Intractable nausea and vomiting Status: Acute (4) Hyperlipidemia Status: Chronic Qualifiers: Hyperlipidemia type: unspecified Qualified Code(s): E78.5 - Hyperlipidemia, unspecified (5) Hypertension Status: Chronic Qualifiers: Hypertension type: essential hypertension Qualified Code(s): I10 - Essential (primary) hypertension Brief History of Present Illness: This is a 74-year-old female with a history of hypertension, hyperlipidemia, glaucoma with previous history of tubal ligation, hysterectomy, hernia repair that came to the emergency room today for increased abdominal pain and nausea. Patient stated that her pain started on Tuesday followed by nausea and vomiting. Since then she has had persistent pain with nausea and occasional vomiting. Patient denies having abdominal complaints in the past. Patient was worked up in the emergency room and was found to have a 15.6 WBC, 138 sodium, 3.6 potassium, 100 chloride, 32 bicarb, 32 BUN, 1.63 creatinine, glucose 137, and a CT abdomen pelvis with IV contrast that revealed a small bowel obstruction. Remainder of exam and and labs were unremarkable. ER call general surgery for consult which Dr. Chiang accepted. Patient at this time without nausea and no vomiting. Will hold nasogastric tube per general surgery. Hospital medicine was consulted at that time for admission. Hospital Course: Patient slowly improved. Nausea and vomiting also improved. Patient's abdominal film showed almost resolution of the small bowel obstruction. Patient had flatus and patient moved her bowels. Patient tolerated her diet. At this time, patient is stable for discharge home. Vital Signs/Physical Exam: Temp Pulse Resp BP Pulse Ox 97.4 F 77 18 131/59 L 95 02/21/20 14:20 02/21/20 14:20 02/21/20 14:20 02/21/20 14:20 02/21/20 14:20 General: Alert, In no apparent distress, Oriented x3 Laboratory Data at Discharge: WBC 10.0 K/uL (4.3-10.9) D 02/15/20 06:15 Hgb 14.0 g/dL (12.0-15.0) 02/15/20 06:15 Hct 41.7 % (36.0-45.0) 02/15/20 06:15 Plt Count 142 K/uL (152-406) L 02/15/20 06:15 Sodium 141 mmol/L (136-145) 02/15/20 06:15 Potassium 3.7 mmol/L (3.5-5.1) 02/15/20 06:15 BUN 17 mg/dL (7-18) 02/15/20 06:15 Creatinine 1.32 mg/dL (0.55-1.3) H 02/15/20 06:15 Glucose 127 mg/dL (74-106) H 02/15/20 06:15 Total Bilirubin 0.7 mg/dL (0.2-1.0) 02/13/20 22:17 AST 22 U/L (15-37) 02/13/20 22:17 ALT 32 U/L (12-78) 02/13/20 22:17 Alkaline Phosphatase 82 U/L (45-117) 02/13/20 22:17 Lipase 85 U/L (73-393) 02/13/20 22:17 Home Medications: Cetirizine HCl [Zyrtec] 10 mg PO DAILY 04/21/15 Cholecalciferol (Vitamin D3) [Vitamin D 5,000 IU Cap*] 5,000 unit PO EVERY 3RD DAY 04/21/15 Latanoprost Ophth [Xalatan 0.005%*] 2.5 ml EACH EYE DAILY 04/21/15 Multivitamin [Multivitamins] 1 each PO DAILY 04/21/15 Amlodipine [Norvasc*] 1 tab PO DAILY 02/14/20 Aspirin 1 tab PO DAILY 02/14/20 Atorvastatin Calcium 1 tab PO DAILY 02/14/20 lisinopriL [Lisinopril] 1 tab PO DAILY 02/14/20 Docusate [Colace Cap] 100 mg PO BID #60 cap 02/16/20 New Medications: Docusate [Colace Cap] 100 mg PO BID #60 cap Patient Discharge Instructions: OK TO DC IV AND DC HOME. FOLLOW-UP WITH PRIMARY CARE PROVIDER IN 1-2 WEEKS. FOLLOW-UP WITH GASTROENTEROLOGY IN 1-2 WEEKS. RETURN TO THE ER IF SYMPTOMS WORSEN. CALL or TEXT DR. URIAS AT [phone] IF ANY QUESTIONS REGARDING HOSPITAL STAY. PLEASE CALL THE FLOOR AT [phone] IF ANY MEDICATION OR NURSING QUESTIONS. Diet: AHA Activity: Ad tico Followup: Deyvi Gamez MD [Primary Care Provider] - Time spent managing pt's care (in minutes): 35
--- NOTE | 2020-02-21 14:30 | P.PN ---
Subjective Date of Service: 02/14/20 Patient is still having abdominal pain. Pt is still having some nausea and vomiting. Repeat abdominal films in the morning Review of Systems 10-point ROS is otherwise unremarkable Physical Examination - Vital Signs Temperature: 97.4 F Blood Pressure: 131/59 Pulse: 77 Respirations: 18 Pulse Ox (%): 95 - Physical Exam General: Alert, In no apparent distress, Oriented x3 Respiratory: Clear to auscultation bilaterally, Normal air movement Cardiovascular: Regular rate/rhythm, Normal S1 S2, No murmurs Gastrointestinal: Normal bowel sounds, Soft and benign, Non-distended, No tenderness, No rebound, No guarding Musculoskeletal: No clubbing, No swelling Neurological: Normal gait, Normal strength at 5/5 x4 extr, Normal tone, Sensation intact, Cranial nerves 3-12 intact Assessment & Plan - Problems (Diagnosis) (1) Small bowel obstruction, partial Status: Acute (2) Ileus Status: Acute (3) Intractable nausea and vomiting Status: Acute (4) Hyperlipidemia Status: Chronic Qualifiers: Hyperlipidemia type: unspecified Qualified Code(s): E78.5 - Hyperlipidemia, unspecified (5) Hypertension Status: Chronic Qualifiers: Hypertension type: essential hypertension Qualified Code(s): I10 - Es sential (primary) hypertension - Plan Plan: Continue with plan of care as mentioned below: 1. Continue with IV fluids 2. Continue with antiemetics 3. Repeat abdominal films in AM 4. Appreciate general surgery consultation 5. Resume BP and cholestrol meds 6. GI and DVT prophylaxis Discharge Plan: Home Plan to discharge in: Greater than 2 days - Advance Directives Does patient have a Living Will: No Does patient have a Durable POA for Healthcare: No - Code Status/Comfort Care Code Status: Full Code Critical Care: No Time Spent Managing PTS Care (In Minutes): 35
== END 2020-02-16 15:36 | disposition home or self-care (01) | DRG 388 ==
LOC: ER 20:44 → 2ND 02-14 01:07
PROVIDERS: ADMIT Hospitalist; ATTEND Hospitalist
DX: K56.690 Other partial intestinal obstruction (principal); N17.0 Acute kidney failure with tubular necrosis; N13.1 Hydronephrosis with ureteral stricture, not elsewhere classified; I10 Essential (primary) hypertension; E86.1 Hypovolemia; E83.52 Hypercalcemia; E78.5 Hyperlipidemia, unspecified; R73.9 Hyperglycemia, unspecified; Z98.51 Tubal ligation status; Z90.710 Acquired absence of both cervix and uterus; Z79.82 Long term (current) use of aspirin; Z88.1 Allergy status to other antibiotic agents; Z79.899 Other long term (current) drug therapy; Z20.828 Contact with and (suspected) exposure to other viral communicable diseases
CPT/HCPCS: 36415; 74018; 74019; 74176; 80048; 80076; 81003; 81015; 83690; 85025; 87086; 87088; 96361; 96374; 96375; 99284; J0694; J1650; J2270; J2405; J7030; J7799; U0002

== ENCOUNTER 2022-05-03 12:41 | Day surgery (SDC) | payer MEDICARE ==
[2022-05-03] MEDS ORDERED: NA CHLORIDE 0.9% 500 ML ONE (13:08)
[2022-05-03] MEDS ORDERED: LIDOCAINE HCL/PF 3.5% OPTH GEL ONE (13:14)
[2022-05-03] MEDS: PHENYLEPHRINE 10% OPTH 5ML ONE ×3 (14:20→14:30)
[2022-05-03] MEDS: CYCLOPENTOLATE 1% OPTH 2 ML ONE ×3 (14:20→14:30)
[2022-05-03] MEDS ORDERED: BALANCED SALT IRRIG PLAIN 500 ML IRR ONE (15:11)
[2022-05-03] MEDS ORDERED: BSS OPTHALMIC SOL 15 ML OPTH ONE (15:11)
[2022-05-03] MEDS ORDERED: LIDOCAINE 1% MPF 2 ML AMPULE ONE (15:11)
[2022-05-03] MEDS ORDERED: EPINEPHRINE/PF 1 MG/ML AMP ONE (15:11)
[2022-05-03] MEDS ORDERED: DUOVISC 1 KIT OPTH ONE ×2 (15:12→17:18)
[2022-05-03] MEDS ORDERED: MOXIFLOXACIN HCL 10 DROPS/ML **OR USE OPTH ONE (15:23)
[2022-05-03] MEDS ORDERED: FENTANYL CITR 100 MCG/2 ML ONE (16:55)
[2022-05-03] MEDS ORDERED: MIDAZOLAM HCL 2 MG/2 ML INJ ONE (16:55)
[2022-05-03 18:27] VITALS: BP 162/79; TEMP 97.2; O2SAT 99
--- NOTE | 2022-05-04 01:49 | OP ---
Date of Procedure: 05/03/2022 Surgeon: Padmaja Bernstein MD Anesthesiologist: Deshaun Feldman M.D. Preoperative Diagnoses: 1. Nuclear sclerotic cataract, left eye. 2. Moderate open angle glaucoma, left eye. Operation Performed: Phacoemulsification with intraocular lens implant and i- Stent, left eye. Anesthesia: Topical anesthesia. Per cataract surgery. Complications: None. Description Of Procedure: In day surgery, Akten was place in eye. In the operating room the patient was prepped and draped in the usual sterile fashion for ophthalmic surgery. A lid speculum was placed in the left eye. Two paracentesis sites were made superiorly and inferiorly in the limbal cornea. Viscoat was placed in the anterior chamber and a keratome was used to enter the anterior chamber. A 360 degree capsulotomy was performed with utrata forceps. The lens was hydrodissected with BSS and rotated freely. The lens was removed with a chop technique. 9.8 Phaco CDE was used to remove the lens. Residual cortex was removed with the irrigation and aspiration. Provisc was placed in the capsular bag. A DCB00 +20.0 lens was placed in the capsular bag without complications. Irrigation and aspiration was used to remove residual viscoelastic. The paracentesis sites were hydrated with BSS. The wound and paracentesis sites were inspected and found to be watertight. The eye was irrigated with balanced salt solution. The eye was patched with a clear shield. The patient was returned to day surgery in good condition. Comments: Two i-Stents were placed 3 clock hours apart. Discharge Instructions: Ms. Fernández is discharged to home in good condition and is to follow up with Dr. Bernstein in the morning. ABEL/NARDA Voice ID: [id number] Report ID: [id number] KENA
== END 2022-05-03 18:25 | disposition home or self-care (01) ==
LOC: OR 12:41
PROVIDERS: ADMIT Ophthalmology Retina Specialist; ATTEND Ophthalmology Retina Specialist
PROC: 08RK3JZ Replacement of Left Lens with Synthetic Substitute, Percutaneous Approach (ICD-10-PCS; principal; 2022-05-03 14:30)
DX: H25.12 Age-related nuclear cataract, left eye (principal); H25.812 Combined forms of age-related cataract, left eye
CPT/HCPCS: 66984; J0171; J2250; J3010; J7040